=== PATIENT | female | born 1990 | race Caucasian/White ===

== ENCOUNTER 2019-11-15 20:01 | Emergency (ER) | payer OTHER ==
[2019-11-15 20:16] VITALS: BP 109/67; PULSE 98; RESP 18; TEMP 98.4
--- NOTE | 2019-11-15 21:20 | ED ---
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 Patient states she initially had a workup for seizures performed in [place] she states she began having seizures January 2018. Patient states that she has had EEGs and previous MRIs. Patient has new care with Dr. Rodrigues since June was been tapering patient off of Keppra which she is now fully weaned off of an began a new medication she states that she was weaned off Keppra due to suicidal ideation from the medications denies any current suicidal ideation. Patient states that today while not work and a second seizure while at home is increased from her baseline. Patient seizures witneess, no head injury documented, no sign of head trauma per patient. Patient states she has small cut on tongue. States she has typical slight headache. Denies speech changes because of the upper or lower extremities, visual changes, neck pain, nausea, vomiting. She called her neurologist who made an appointment for 11:00AM tomorrow and told her to come to ER for documentation as patient is applying for disability. patient states otherwise she would not have come in, no additional complaints. - Related Data Home Medications Medication Instructions Recorded Confirmed Topiramate [Trokendi Xr] 200 mg PO DAILY 11/15/19 11/15/19 Allergies Allergy/AdvReac Type Severity Reaction Status Date / Time No Known Allergies Allergy Verified 11/15/19 20:15 Review of Systems ROS Statement: Those systems with pertinent positive or pertinent negative responses have been documented in the HPI. ROS Other: All systems not noted in ROS Statement are negative. Past Medical History Past Medical History: Seizure Disorder History of Any Multi-Drug Resistant Organisms: None Reported Past Surgical History: No Surgical Hx Reported Past Psychological History: ADD/ADHD, Anxiety, Depression Smoking Status: Current every day smoker Past Alcohol Use History: None Reported Past Drug Use History: Marijuana General Exam - General Exam Comments Initial Comments: General: The patient is awake and alert, in no distress, and does not appear acutely ill. Eye: +3 mm pupils are equal, round and reactive to light, extra-ocular movements are intact. No nystagmus. There is normal conjunctiva bilaterally. No signs of icterus. Ears, nose, mouth and throat: There are moist mucous membranes and no oral lesions. No raccoon or Gamez sign. No midline tenderness to patient of the cervical spine. No hematomas ecchymosis noted of the head or face Neck: The neck is supple, there is no tenderness or JVD. Cardiovascular: There is a regular rate and rhythm. No murmur, rub or gallop is appreciated. Respiratory: Lungs are clear to auscultation, respirations are non-labored, breath sounds are equal. No wheezes, stridor, rales, or rhonchi. Musculoskeletal: Normal ROM, no tenderness. Strength 5/5 of the upper and lower extremities equal and comparison bilaterally strong 5 out of 5 drapery estimator strength equal bilaterally. No pronator drift. Sensation intact of the upper and lower extremities equal comparison laterally. Radial pulses equal bilaterally 2+. Neurological: A&O x 3. CN II-XII intact, There are no obvious motor or sensory deficits. Coordination appears grossly intact. Speech is normal. Skin: Skin is warm and dry and no rashes or lesions are noted. Tongue laceration superficial right lateral side < 1/2 cm. Not gapping. Psychiatric: Cooperative, appropriate mood & affect, normal judgment. Limitations: no limitations Course Vital Signs 11/15/19 20:11 Temperature 98.4 F Pulse Rate 98 Respiratory 18 Rate Blood Pressure 109/67 O2 Sat by Pulse 99 Oximetry Medical Decision Making - Medical Decision Making 29-year-old female with history of epilepsy presenting for 2 seizures today. Currently being weaned off Keppra. Has a new antiepileptic. No focal deficits. No current complaints from slight headache that has been gradually decreasing since 2nd seizure. Seizure <3 minutes, no focal symptoms per boyfriend. Patient has no other complaints. Patient has follow-up for medication adjustment tomorrow with neurology and known history without focal findings she will be discharged at this time with return parameters. Patient agreeable to care plan stating she just wants to go home and was discharged appearing well after discussing case wtih Dr. crockett Disposition Clinical Impression: Seizure Disposition: HOME SELF-CARE Condition: Good Instructions (If sedation given, give patient instructions): Recurrent Seizures in Adults (ED) Additional Instructions: Please use medication as discussed. Please follow-up with your neurologist tomorrow at 11AM as scheduled. Please return to emergency room if the symptoms increase or worsen or for any other concerns-seizures. Is patient prescribed a controlled substance at d/c from ED?: No Referrals: Abdirizak Sevilla MD [Primary Care Provider] - 1-2 days Rohan Rodrigues MD [Medical Doctor] - 1-2 days Time of Disposition: 21:19
== END 2019-11-15 21:40 | disposition home or self-care (01) ==
LOC: EC 20:01
DX: G40.909 Epilepsy, unspecified, not intractable, without status epilepticus (principal); S01.512A Laceration without foreign body of oral cavity, initial encounter; R51 Headache; F17.200 Nicotine dependence, unspecified, uncomplicated; Z79.899 Other long term (current) drug therapy; X58.XXXA Exposure to other specified factors, initial encounter
CPT/HCPCS: 99283

== ENCOUNTER → 2020-05-06 | Outpatient (CLI) | payer OTHER | END | disposition home or self-care (01) | LOC: LABWHC1 10:08 | PROVIDERS: ATTEND Nurse Practitioner Acute Care | DX: R56.9 Unspecified convulsions (principal); Z51.81 Encounter for therapeutic drug level monitoring | CPT/HCPCS: 36415; 80177 ==

== ENCOUNTER → 2020-07-22 | Outpatient (CLI) | payer OTHER ==
[2020-07-22 08:57] LABS: Basophils # (A) 0.1 k/uL (0-0.2); Basophils % (A) 1 %; Eosinophils # (A) 0.3 k/uL (0-0.7); Eosinophils % (A) 4 %; HCT 40.2 % (34.0-46.0); HGB 13.2 gm/dL (11.4-16.0); Lymphocytes # (A) 2.6 k/uL (1.0-4.8); Lymphocytes % (A) 33 %; MCH 30.2 pg (25.0-35.0); MCHC 32.8 g/dL (31.0-37.0); MCV 92.1 fL (80.0-100.0); Mean Platelet Volume 6.8; Monocytes # (A) 0.4 k/uL (0-1.0); Monocytes % (A) 5 %; Neutrophils # (A) 4.2 k/uL (1.3-7.7); Neutrophils % (A) 55 %; Platelet Count 359 k/uL (150-450); RBC 4.37 m/uL (3.80-5.40); WBC 7.6 k/uL (3.8-10.6)
[2020-07-22 09:48] LABS: ALT 10 U/L (4-34); AST 20 U/L (14-36); African American GFR (CKD) >90 (>60 ml/min/1.73 sqM); Albumin 3.7 g/dL (3.5-5.0); Albumin/Globulin Ratio 1.4; Alkaline Phosphatase 42 U/L (38-126); Anion Gap 5 mmol/L; Blood Urea Nitrogen 12 mg/dL (7-17); Calcium 8.7 mg/dL (8.4-10.2); Carbon Dioxide 23 mmol/L (22-30); Chloride 111 mmol/L (98-107); Globulin 2.7 g/dL; Glucose 102 mg/dL (74-99); Non-African American GFR(CKD) >90 (>60 ml/min/1.73 sqM); Potassium 3.7 mmol/L (3.5-5.1); Sodium 139 mmol/L (137-145); T4, Free (Free Thyroxine) 1.14 ng/dL (0.78-2.19); Total Bilirubin 0.5 mg/dL (0.2-1.3); Total Protein 6.4 g/dL (6.3-8.2)
[2020-07-22 12:34] LABS: Glucose 2 Hour 113 mg/dL
[2020-07-22 16:58] LABS: % Iron Saturation 8.47 (12.00-45.00); Iron 25 ug/dL (50-170); Total Iron Binding Capacity 295 ug/dL (228-460)
[2020-07-22 17:01] LABS: Ferritin 36.4 ng/mL (10.0-291.0)
== END | disposition home or self-care (01) ==
LOC: LABWHC1 08:32
PROVIDERS: ATTEND Psychiatry & Neurology Neurology
DX: E55.9 Vitamin D deficiency, unspecified (principal); G40.89 Other seizures; R53.83 Other fatigue
CPT/HCPCS: 36415; 80053; 82306; 82607; 82728; 82947; 82950; 83540; 83550; 84439; 84443; 84466; 84481; 85025

== ENCOUNTER → 2020-11-07 | Outpatient (CLI) | payer OTHER ==
[2020-11-07 10:38] LABS: Basophils # (A) 0.1 k/uL (0-0.2); Basophils % (A) 1 %; Eosinophils # (A) 0.3 k/uL (0-0.7); Eosinophils % (A) 3 %; HCT 40.9 % (34.0-46.0); HGB 13.8 gm/dL (11.4-16.0); Lymphocytes # (A) 3.1 k/uL (1.0-4.8); Lymphocytes % (A) 41 %; MCH 30.9 pg (25.0-35.0); MCHC 33.6 g/dL (31.0-37.0); Mean Platelet Volume 7.1; Monocytes # (A) 0.4 k/uL (0-1.0); Monocytes % (A) 6 %; Neutrophils # (A) 3.5 k/uL (1.3-7.7); Neutrophils % (A) 47 %; Platelet Count 321 k/uL (150-450); RBC 4.45 m/uL (3.80-5.40); RDW 12.5 % (11.5-15.5); WBC 7.6 k/uL (3.8-10.6)
[2020-11-07 19:59] LABS: African American GFR (CKD) 134.7 (60.0-200.0); Albumin 4.5 g/dL (3.80-4.90); Albumin/Globulin Ratio 2.25 (1.60-3.17); Anion Gap 7.7 mmol/L (4.00-12.00); BUN/Creat Ratio 11.43 Ratio (12.00-20.00); Calcium 9.2 mg/dL (8.7-10.3); Carbon Dioxide 26.3 mmol/L (21.6-31.8); Non-African American GFR(CKD) 116.3 (60.0-200.0); Potassium 4.3 mmol/L (3.5-5.5); Total Bilirubin 0.4 mg/dL (0.3-1.2); Total Protein 6.5 g/dL (6.2-8.2)
[2020-11-07 20:08] LABS: T4, Free (Free Thyroxine) 1.2 ng/dL (0.80-1.80)
== END | disposition home or self-care (01) ==
LOC: LABWHC1 10:13
PROVIDERS: ATTEND Nurse Practitioner Acute Care
DX: D51.0 Vitamin B12 deficiency anemia due to intrinsic factor deficiency (principal); D64.9 Anemia, unspecified; E55.9 Vitamin D deficiency, unspecified; R53.83 Other fatigue
CPT/HCPCS: 36415; 80053; 82306; 82607; 84207; 84439; 84443; 84481; 85025

== ENCOUNTER → 2021-07-17 | Outpatient (CLI) | payer OTHER | END | disposition home or self-care (01) | LOC: LABWHC1 10:26 | PROVIDERS: ATTEND Nurse Practitioner Acute Care | DX: Z51.81 Encounter for therapeutic drug level monitoring (principal); R56.9 Unspecified convulsions | CPT/HCPCS: 36415; 80177 ==

== ENCOUNTER 2021-10-26 08:31 | Emergency (ER) | payer OTHER ==
[2021-10-26 08:40] VITALS: RESP 18; TEMP 97.5
--- NOTE | 2021-10-26 09:21 | CT ---
EXAMINATION TYPE: CT brain wo con DATE OF EXAM: 10/26/2021 COMPARISON: None HISTORY: seizure, headache, dizziness post CT DLP: 1099.4 mGycm. Automated Exposure Control for Dose Reduction was Utilized. TECHNIQUE: CT scan of the head is performed without contrast. FINDINGS: There is no acute intracranial hemorrhage, mass effect, or midline shift identified. The ventricles and sulci are within normal limits in size. The globes are intact and the visualized sin uses are clear. IMPRESSION: No acute intracranial hemorrhage, mass effect, or midline shift is seen.
--- NOTE | 2021-10-26 09:21 | XR ---
Right knee. HISTORY: Knee pain COMPARISON: None. TECHNIQUE: 3 views the right knee were obtained FINDINGS: There is no fracture, dislocation, intraosseous or intra-articular abnormality. There is no joint eff usion. There is no radiopaque foreign body. There is no abnormal soft tissue calcification. IMPRESSION: No significant abnormality seen.
[2021-10-26 10:09] LABS: Basophils # (A) 0.1 k/uL (0-0.2); Basophils % (A) 1 %; Eosinophils # (A) 0.2 k/uL (0-0.7); Eosinophils % (A) 2 %; HCT 42.5 % (34.0-46.0); HGB 13.8 gm/dL (11.4-16.0); Lymphocytes # (A) 1.5 k/uL (1.0-4.8); Lymphocytes % (A) 17 %; MCH 29.9 pg (25.0-35.0); MCHC 32.5 g/dL (31.0-37.0); MCV 91.8 fL (80.0-100.0); Mean Platelet Volume 7.3; Monocytes # (A) 0.5 k/uL (0-1.0); Monocytes % (A) 6 %; Neutrophils # (A) 6.3 k/uL (1.3-7.7); Neutrophils % (A) 73 %; Platelet Count 344 k/uL (150-450); RBC 4.62 m/uL (3.80-5.40); RDW 12.5 % (11.5-15.5); WBC 8.6 k/uL (3.8-10.6)
[2021-10-26 10:13] LABS: Chloride 109 mmol/L (98-107); Potassium 4.9 mmol/L (3.5-5.1)
[2021-10-26 10:15] LABS: ALT 12 U/L (4-34); AST 25 U/L (14-36); African American GFR (CKD) >90 (>60 ml/min/1.73 sqM); Albumin 3.8 g/dL (3.5-5.0); Alkaline Phosphatase 37 U/L (38-126); Anion Gap 10 mmol/L; Blood Urea Nitrogen 7 mg/dL (7-17); Calcium 8.8 mg/dL (8.4-10.2); Carbon Dioxide 18 mmol/L (22-30); Glucose 108 mg/dL (74-99); Magnesium 2.1 mg/dL (1.6-2.3); Non-African American GFR(CKD) >90 (>60 ml/min/1.73 sqM); Sodium 137 mmol/L (137-145); Total Bilirubin 0.4 mg/dL (0.2-1.3); Total Protein 6.6 g/dL (6.3-8.2)
--- NOTE | 2021-10-26 10:26 | ED ---
Seizure HPI - General Chief Complaint: Seizure Stated Complaint: Seizure Time Seen by Provider: 10/26/21 08:42 Source: patient, RN notes reviewed Mode of arrival: wheelchair Limitations: no limitations - History of Present Illness Initial Comments: 31-year-old presented to the emergency Department with chief complaint of seizure. Patient has recurrent seizures and 1500 mg twice daily of Keppra. Patient has not missed any recent doses. Patient states that she still has some breakthrough seizures which is normal for her. She states that she just wants as documented. Patient states she is due for an LP tomorrow secondary to possible increase pressure. Patient has no complaints other than mild tongue laceration. Patient does have a right knee pain which she states is just sore able to ambulate no other complaints. - Related Data Home Medications Medication Instructions Recorded Confirmed Omeprazole 40 mg PO HS 10/26/21 10/26/21 QUEtiapine [SEROquel] 50 mg PO HS 10/26/21 10/26/21 levETIRAcetam [Keppra] 1,500 mg PO Q12HR 10/26/21 10/26/21 Allergies Allergy/AdvReac Type Severity Reaction Status Date / Time No Known Allergies Allergy Verified 10/26/21 09:32 Review of Systems ROS Statement: Those systems with pertinent positive or pertinent negative responses have been documented in the HPI. ROS Other: All systems not noted in ROS Statement are negative. Past Medical History Past Medical History: Seizure Disorder Additional Past Medical History / Comment(s): optic nerve swelling History of Any Multi-Drug Resistant Organisms: None Reported Past Surgical History: No Surgical Hx Reported Additional Past Surgical History / Comment(s): colonscopy Past Psychological History: ADD/ADHD, Anxiety, Depression Smoking Status: Current every day smoker Past Alcohol Use History: None Reported Past Drug Use History: Marijuana General Exam Limitations: no limitations General appearance: alert, in no apparent distress Head exam: Present: atraumatic, normocephalic, normal inspection Eye exam: Present: normal appearance, PERRL, EOMI. Absent: scleral icterus, conjunctival injection, periorbital swelling ENT exam: Present: mucous membranes moist. Absent: normal oropharynx (Lateral tongue bite guerra noted) Neck exam: Present: normal inspection, full ROM. Absent: tenderness, meningismus, lymphadenopathy Respiratory exam: Present: normal lung sounds bilaterally. Absent: respiratory distress, wheezes, rales, rhonchi, stridor Cardiovascular Exam: Present: regular rate, normal rhythm, normal heart sounds. Absent: systolic murmur, diastolic murmur, rubs, gallop, clicks Extremities exam: Present: other (Right knee tenderness full range of motion neurovascular intact) Neurological exam: Present: alert, oriented X3, CN II-XII intact, reflexes normal. Absent: motor sensory deficit Course Vital Signs 10/26/21 08:37 Temperature 97.5 F L Pulse Rate 90 Respiratory 18 Rate Blood Pressure 119/86 O2 Sat by Pulse 99 Oximetry Medical Decision Making - Medical Decision Making CT labs unremarkable patient will be discharged in stable condition return parameters discussed. - Lab Data Result diagrams: 10/26/21 09:35 10/26/21 09:35 Lab Results 10/26/21 10/26/21 Range/Units 09:35 09:35 WBC 8.6 (3.8-10.6) k/uL RBC 4.62 (3.80-5.40) m/uL Hgb 13.8 (11.4-16.0) gm/dL Hct 42.5 (34.0-46.0) % MCV 91.8 (80.0-100.0) fL MCH 29.9 (25.0-35.0) pg MCHC 32.5 (31.0-37.0) g/dL RDW 12.5 (11.5-15.5) % Plt Count 344 (150-450) k/uL MPV 7.3 Neutrophils % 73 % Lymphocytes % 17 % Monocytes % 6 % Eosinophils % 2 % Basophils % 1 % Neutrophils # 6.3 (1.3-7.7) k/uL Lymphocytes # 1.5 (1.0-4.8) k/uL Monocytes # 0.5 (0-1.0) k/uL Eosinophils # 0.2 (0-0.7) k/uL Basophils # 0.1 (0-0.2) k/uL Sodium 137 (137-145) mmol/L Potassium 4.9 (3.5-5.1) mmol/L Chloride 109 H (98-107) mmol/L Carbon Dioxide 18 L (22-30) mmol/L Anion Gap 10 mmol/L BUN 7 (7-17) mg/dL Creatinine 0.62 (0.52-1.04) mg/dL Est GFR (CKD-EPI)AfAm >90 (>60 ml/min/1.73 sqM) Est GFR (CKD-EPI)NonAf >90 (>60 ml/min/1.73 sqM) Glucose 108 H (74-99) mg/dL Calcium 8.8 (8.4-10.2) mg/dL Magnesium 2.1 (1.6-2.3) mg/dL Total Bilirubin 0.4 (0.2-1.3) mg/dL AST 25 (14-36) U/L ALT 12 (4-34) U/L Alkaline Phosphatase 37 L (38-126) U/L Total Protein 6.6 (6.3-8.2) g/dL Albumin 3.8 (3.5-5.0) g/dL Disposition Clinical Impression: Generalized seizure, Laceration of tongue, Contusion of knee, right Disposition: HOME SELF-CARE Instructions (If sedation given, give patient instructions): Seizure/Epilepsy Discharge Instructions & Follow-Up Additional Instructions: Please return to the Emergency Department if symptoms worsen or any other concerns. Is patient prescribed a controlled substance at d/c from ED?: No Referrals: Mitchell Simental MD [Primary Care Provider] - 1-2 days Time of Disposition: 10:26
[2021-10-26] MEDS ORDERED: ACET/COD 300 MG/30 MG STARTER PACK 6 TAB BTL PO STA (10:30)
[2021-10-26 10:58] VITALS: BP 136/73; PULSE 69
== END 2021-10-26 10:59 | disposition home or self-care (01) ==
LOC: EC 08:31
DX: G40.909 Epilepsy, unspecified, not intractable, without status epilepticus (principal); S01.512A Laceration without foreign body of oral cavity, initial encounter; S80.01XA Contusion of right knee, initial encounter; F17.200 Nicotine dependence, unspecified, uncomplicated; F12.90 Cannabis use, unspecified, uncomplicated; F32.A Depression, unspecified; F41.9 Anxiety disorder, unspecified; Z79.899 Other long term (current) drug therapy; W18.39XA Other fall on same level, initial encounter
CPT/HCPCS: 36415; 70450; 80053; 80177; 83735; 85025; 99284

== ENCOUNTER → 2021-10-27 | Outpatient (CLI) | payer OTHER ==
[2021-10-27 21:35] LABS: Appearance,CSF Clear; CSF Tube Number 4; CSF Tube Volume 3; Nucleated Cells, CSF 1 u/L (0-5); Red Blood Cell,CSF 0 u/L (0-10)
[2021-10-27 22:40] LABS: Total Protein,CSF 32 mg/dL (12-60)
[2021-10-29 12:18] LABS: IgG - CSF 1.3 mg/dL (0.0 - 3.4); IgG/Albumin Index (CSF) 0.45 (0.00 - 0.77); Immunoglobulin G 913 mg/dL (700 - 1600)
== END | disposition home or self-care (01) ==
LOC: LABWHC1 08:30
PROVIDERS: ATTEND Psychiatry & Neurology Neurology
DX: R90.82 White matter disease, unspecified (principal); R51.9 Headache, unspecified; R42 Dizziness and giddiness
CPT/HCPCS: 36415; 82040; 82042; 82784; 83873; 83916; 84157; 87801; 89050

== ENCOUNTER → 2022-06-26 | Outpatient (CLI) | payer OTHER ==
[2022-06-26 14:35] LABS: Basophils # (A) 0.06 X 10*3/uL (0.00-0.10); Eosinophils # (A) 0.12 X 10*3/uL (0.04-0.35); HCT 39.9 % (37.2-46.3); Immature Grans, Automated 0.5 %; Lymphocytes # (A) 2.01 X 10*3/uL (0.90-5.00); Lymphocytes % (A) 33.8 %; MCH 29.6 pg (27.0-32.0); MCHC 32.6 g/dL (32.0-37.0); MCV 90.9 fL (80.0-97.0); Mean Platelet Volume 9.8 fL (9.5-12.2); Monocytes # (A) 0.49 X 10*3/uL (0.20-1.00); Monocytes % (A) 8.2 %; NRBC Per 100 WBC 0 /100 WBCS (0.0-0.0); Neutrophils # (A) 3.23 X 10*3/uL (1.80-7.70); Neutrophils % (A) 54.5 %; Platelet Count 333 X 10*3/uL (140-440); RBC 4.39 X 10*6/uL (4.10-5.20); WBC 5.94 X 10*3/uL (4.50-10.00)
[2022-06-26 15:05] LABS: African American GFR (CKD) 133.8 (60.0-200.0); Albumin 4.1 g/dL (3.8-4.9); Albumin/Globulin Ratio 1.58 (1.60-3.17); Anion Gap 9.8 mmol/L (10.00-18.00); BUN/Creat Ratio 12.29 Ratio (12.00-20.00); Blood Urea Nitrogen 8.6 mg/dL (9.0-27.0); Calcium 8.8 mg/dL (8.7-10.3); Carbon Dioxide 19.2 mmol/L (20.0-27.5); Globulin 2.6 g/dL (1.6-3.3); Non-African American GFR(CKD) 115.4 (60.0-200.0); Potassium 4.1 mmol/L (3.5-5.5); Total Bilirubin 0.6 mg/dL (0.30-1.20); Total Protein 6.7 g/dL (6.2-8.2)
== END | disposition home or self-care (01) ==
LOC: LABWHC1 09:18
PROVIDERS: ATTEND Nurse Practitioner Acute Care
DX: E55.9 Vitamin D deficiency, unspecified (principal); E53.9 Vitamin B deficiency, unspecified; R42 Dizziness and giddiness; H53.8 Other visual disturbances; R56.9 Unspecified convulsions; G93.2 Benign intracranial hypertension; R53.83 Other fatigue
CPT/HCPCS: 36415; 80053; 80177; 82306; 82607; 84207; 85025

== ENCOUNTER → 2023-09-21 | Outpatient (CLI) | payer OTHER ==
[2023-09-21 15:24] LABS: HCT 46.4 % (37.2-46.3); HGB 15.6 g/dL (12.0-15.0); MCH 29.5 pg (27.0-32.0); MCHC 33.6 g/dL (32.0-37.0); MCV 87.9 FL (80.0-97.0); NRBC Per 100 WBC 0 X 10*3/uL (0.00-0.01); Platelet Count 363 X 10*3/uL (140-440); RBC 5.28 X 10*6/uL (4.10-5.20); RDW 12.7 % (11.5-14.5); WBC 8.24 X 10*3/uL (4.50-10.00)
[2023-09-21 15:25] LABS: Basophils # (A) 0.07 X 10*3/uL (0.00-0.10); Basophils % (A) 0.8 %; Eosinophils # (A) 0.06 X 10*3/uL (0.04-0.35); Eosinophils % (A) 0.7 %; Lymphocytes # (A) 2.21 X 10*3/uL (0.90-5.00); Lymphocytes % (A) 26.8 %; Monocytes # (A) 0.75 X 10*3/uL (0.20-1.00); Monocytes % (A) 9.1 %; Neutrophils # (A) 5.12 X 10*3/uL (1.80-7.70); Neutrophils % (A) 62.2 %
[2023-09-21 15:51] LABS: ALT 12 U/L (8-44); AST 12 U/L (13-35); Albumin 4.8 g/dL (3.8-4.9); Albumin/Globulin Ratio 1.85 Ratio (1.60-3.17); Alkaline Phosphatase 49 U/L (41-126); BUN/Creat Ratio 10.78 Ratio (12.00-20.00); Blood Urea Nitrogen 9.7 mg/dL (9.0-27.0); Calcium 9.7 mg/dL (8.7-10.3); Carbon Dioxide 21.6 mmol/L (21.6-31.8); Chloride 101 mmol/L (96-109); Globulin 2.6 g/dL (1.6-3.3); Glucose 100 mg/dL (70-110); Potassium 4.4 mmol/L (3.5-5.5); Sodium 137 mmol/L (135-145); T4, Free (Free Thyroxine) 1.34 ng/dL (0.80-1.80); Total Bilirubin 0.9 mg/dL (0.3-1.2); Total Protein 7.4 g/dL (6.2-8.2)
== END | disposition home or self-care (01) ==
LOC: LABWHC1 09:41
PROVIDERS: ATTEND Psychiatry & Neurology Neurology
DX: E55.9 Vitamin D deficiency, unspecified (principal); G43.909 Migraine, unspecified, not intractable, without status migrainosus; E53.9 Vitamin B deficiency, unspecified; G93.2 Benign intracranial hypertension; R42 Dizziness and giddiness; R56.9 Unspecified convulsions
CPT/HCPCS: 36415; 80053; 80177; 82306; 82607; 84207; 84439; 84443; 84480; 85025